=== PATIENT | female | born 1950 | race Caucasian/White ===

== ENCOUNTER 2025-03-13 09:48 | Day surgery (SDC) | payer MEDICARE, MEDICAID ==
[2025-03-13] MEDS: Lactated Ringers 1,000 ML IV SCH (10:10)
[2025-03-13] MEDS ORDERED: Midazolam 1 MG/ML 2 ML SDV ONE ×2 (10:42→12:36)
[2025-03-13] MEDS ORDERED: Propofol 200 MG/20 ML SDV ONE ×3 (10:42→12:43)
[2025-03-13] MEDS ORDERED: fentaNYL 100 MCG/2 ML SDV ONE ×2 (10:42→12:43)
[2025-03-13] MEDS ORDERED: ePHEDrine 50 MG/ML SDV ONE (11:48)
== END 2025-03-13 13:20 | disposition home or self-care (01) ==
LOC: VM.SDS 09:48
PROVIDERS: ATTEND Surgery
DX: Z12.11 Encounter for screening for malignant neoplasm of colon (principal)
CPT/HCPCS: 00812; 99100; J2250; J2704; J3010; J3490; J7120